=== PATIENT | female | born 1995 | race African-American/Black ===

== ENCOUNTER 2017-05-31 14:12 | Emergency (ER) | payer BC ==
[~2017-05-31] VITALS: Ht 170.2 cm; Wt 62.3 kg
[~2017-05-31 14:12] MED LIST: SPRI28TA PO
[2017-05-31 14:16] VITALS: BP 110/58; PULSE 80; RESP 20; TEMP 98.8; O2SAT 98
[2017-05-31] MEDS ORDERED: PRED-503 PO (14:41)
--- NOTE | 2017-05-31 14:43 | PD ---
HPI Chief Complaint: Skin Problem Time Seen by Provider: 14:36 Travel History International Travel<30 days: No Contact w/Intl Traveler<30days: No Traveled to known affect area: No History of Present Illness HPI 21-year-old female presents to the emergency Department with complaint of severe itchiness to mosquito bites that she obtained on Thursday night. Denies fever, vomiting. Says she has tried [id number] topicals and oral Benadryl with no relief of symptoms. Took a cool shower today which relieved some of the itching, but once she got out and dried off the itching came back. Denies airway edema, difficulty breathing, wheezing. Symptoms are mild in severity. No known allergies. Has no other medical complaints. No other modifying factors or associated signs and symptoms. PFSH Past Medical History Asthma: Yes Autoimmune Disease: No Blood Disorders: No Cardiovascular Problems: No Diminished Hearing: No Headaches: Yes Musculoskeletal: No Neurologic: Yes Respiratory: Yes Immunizations Current: No Sleep Apnea: Yes : 0 Para: 0 Miscarriage: 0 : 0 Social History Alcohol Use: Yes (SOCIAL) Tobacco Use: No Substance Use: No (DENIES ) Allergies-Medications (Allergen,Severity, Reaction): Coded Allergies: No Known Allergies (Verified , 05/31/17) Reported Meds & Prescriptions Reported Meds & Active Scripts Active Deltasone (Prednisone) 20 Mg Tab 40 Mg PO DAILY 4 Days Sprintec 28 (Norgestimate-Ethinyl Estradiol) 0.25-35 mg-Mcg Tab 1 Tab PO DAILY Review of Systems Except as stated in HPI: all other systems reviewed are Neg Physical Exam Narrative GENERAL: Well-nourished, well-developed black female patient, in no acute distress; afebrile, nontoxic-appearing SKIN: Warm and dry. Multiple, raised wheals to bilateral lower extremities, bilateral upper extremities. There is mild erythema to the wheals and surrounding the wheals consistent with possible allergy. HEAD: Atraumatic. Normocephalic. EYES: Pupils equal and round. No scleral icterus. No injection or drainage. ENT: Mucosa pink and moist. Airway patent. NECK: Trachea midline. CARDIOVASCULAR: Regular rate. RESPIRATORY: No accessory muscle use. GASTROINTESTINAL: Flat. MUSCULOSKELETAL: No obvious deformities. No clubbing. No cyanosis. No edema. NEUROLOGICAL: Awake and alert. Oriented 3. No obvious cranial nerve deficits. Motor grossly within normal limits. Normal speech. PSYCHIATRIC: Appropriate mood and affect; insight and judgment normal. Data Data Last Documented VS Vital Signs Date Time Temp Pulse Resp B/P (MAP) Pulse Ox O2 Delivery O2 Flow Rate FiO2 05/31/17 14:16 98.8 80 20 110/58 (75) 98 Room Air Orders Orders Prednisone (Deltasone) (05/31/17 14:45) MDM Medical Decision Making Medical Screen Exam Complete: Yes Emergency Medical Condition: Yes Medical Record Reviewed: Yes Differential Diagnosis Mosquito bites, allergic reaction to insect sting, medical clearance Narrative Course 21-year-old female physical exam consistent with allergic reaction to mosquito bites. She is afebrile and nontoxic-appearing. Denies fever, vomiting. Denies airway edema. Reports bites are severely itchy. There is some surrounding erythema. Deltasone administered in the ER. Instructed patient to continue to take oral Benadryl as directed and as needed for itching. Deltasone prescribed for home. Instructed patient to follow up with primary care provider. Patient verbalizes understanding and agreement with treatment plan. Patient is medically cleared and stable for discharge. Discussed reasons to return to the emergency department. Patient agrees with treatment plan. The patients vital signs are stable and the patient is stable for outpatient follow-up and treatment. Patient discharged home, stable and in no acute distress. Diagnosis Primary Impression: Mosquito bite Qualified Codes: W57.XXXA - Bitten or stung by nonvenomous insect and other nonvenomous arthropods, initial encounter Additional Impression: Allergic reaction to insect sting Qualified Codes: T63.484A - Toxic effect of venom of other arthropod, undetermined, initial encounter Referrals: Primary Care Physician Patient Instructions: General Allergic Reaction (ED), General Instructions Departure Forms: School Release, Return to School Date: Jun 01, 2017 Tests/Procedures Additional Instructions: Take oral steroids as prescribed Iakn-[id number] topicals to reduce itch Benadryl as directed and as needed to reduce itch Follow-up with your primary care provider Return to the emergency department immediately with worsening of symptoms Med/Other Pt SpecificInfo: Prescription(s) given Scripts Prednisone (Deltasone) 20 Mg Tab 40 MG PO DAILY for 4 Days, TAB 0 Refills Prov: Mary Jiang COURT ABSTRACTOR 05/31/17 Disposition: 01 DISCHARGE HOME Condition: Stable Mary Jiang May 31, 2017 14:43
[2017-05-31] MEDS ORDERED: predniSONE 20 MG TAB PO ONE (14:45)
== END 2017-05-31 15:05 | disposition home or self-care (01) ==
LOC: NEPK 14:12
DX: S40.862A Insect bite (nonvenomous) of left upper arm, initial encounter (principal); S40.861A Insect bite (nonvenomous) of right upper arm, initial encounter; S80.862A Insect bite (nonvenomous), left lower leg, initial encounter; S80.861A Insect bite (nonvenomous), right lower leg, initial encounter; W57.XXXA Bitten or stung by nonvenomous insect and other nonvenomous arthropods, initial encounter; J45.909 Unspecified asthma, uncomplicated; G47.30 Sleep apnea, unspecified
CPT/HCPCS: 99283